=== PATIENT | male | born 1975 | race Hispanic/Latino ===

== ENCOUNTER 2022-09-07 21:18 | Inpatient (IN) | payer OTHER ==
[2022-09-07 22:37] LABS: #Eosinphils 0.5 thou/uL (0.0-0.7); #Monocytes 0.6 thou/uL (0.11-0.59); #Neutrophils 6.3 thou/uL (1.40-6.50); %Basophils 0.5 % (0.0-1.0); %Eosinophils 5.4 % (0.0-10.0); %Lymphocytes 16.1 % (21.0-51.0); %Monocytes 6.8 % (0.0-10.0); %Neutrophils 70.9 % (42.0-75.0); Hemoglobin 13.6 g/dL (14.0-18.0); Mean Corpuscular HGB CONC 34.4 g/dL (32.0-36.0); Mean Corpuscular Hemoglobin 28.9 pg (27.0-31.0); Mean Platelet Volume 11.8 fL (7.4-10.4); Platelet Count 202 10x3/uL (130-400); RBC Distribution Width 12.9 % (11.5-14.5); White Blood Cell (WBC) Count 8.8 10x3/uL (4.8-10.8)
[2022-09-07 23:02] LABS: ALT (SGPT) 13 U/L (8-55); AST (SGOT) 12 U/L (5-34); Albumin 3.9 g/dL (3.5-5.0); Alkaline Phosphatase 123 U/L (40-110); Anion Gap 13 mmol/L (10-20); BUN (Urea Nitrogen) 18 mg/dL (8.9-20.6); Bilirubin, Total 0.3 mg/dL (0.2-1.2); Calc. Creatinine Clearance 0 mL/min (70-130); Carbon Dioxide 23 mmol/L (22-29); Chloride 102 mmol/L (98-107); Estimated GFR 45; Globulin 3.4 g/dL (2.4-3.5); Glucose 329 mg/dL (70-105); Potassium 3.9 mmol/L (3.5-5.1); Protein, Total 7.3 g/dL (6.0-8.3); Sodium 134 mmol/L (136-145)
[2022-09-08] MEDS ORDERED: Cefepime 2 GM VIAL ONE (00:38)
[2022-09-08] MEDS ORDERED: Acetaminophen 325 MG TAB PO PRN (00:45)
[2022-09-08] MEDS ORDERED: VANCOMYCIN 2 GRAM/500 ML BAG 2 GM in Premix Bag 1 BAG IVPB SCH (01:00)
[2022-09-08] MEDS ORDERED: hydrALAZINE 20 MG/ML VIAL ONE (03:45)
[2022-09-08] MEDS ORDERED: hydrALAZINE 20 MG/ML VIAL SLOW IVP PRN (04:05)
[2022-09-08 04:15] LABS: Lactic Acid 1.5 mmol/L (0.5-2.2)
[2022-09-08] MEDS ORDERED: Thiamine HCl 200 MG/2 ML VIAL IM SCH (04:15)
[2022-09-08] MEDS: Lactated Ringer's 1,000 ML IV SCH ×2 (04:41→15:35)
[2022-09-08 05:01] VITALS: BMI 30.9
[2022-09-08] MEDS: Levothyroxine Sodium 112 MCG TAB PO SCH (05:50)
[2022-09-08 06:24] LABS: #Eosinphils 0.6 thou/uL (0.0-0.7); #Monocytes 0.7 thou/uL (0.11-0.59); #Neutrophils 6.5 thou/uL (1.40-6.50); %Basophils 0.4 % (0.0-1.0); %Eosinophils 5.8 % (0.0-10.0); %Lymphocytes 19.6 % (21.0-51.0); %Monocytes 7.5 % (0.0-10.0); %Neutrophils 66.4 % (42.0-75.0); Hemoglobin 12.6 g/dL (14.0-18.0); Mean Corpuscular HGB CONC 34.3 g/dL (32.0-36.0); Mean Corpuscular Hemoglobin 28.9 pg (27.0-31.0); Mean Corpuscular Volume 84.2 fl (78.0-98.0); Mean Platelet Volume 11.8 fL (7.4-10.4); Platelet Count 189 10x3/uL (130-400); Red Blood Cell (RBC) Count 4.36 mill/uL (4.70-6.10); White Blood Cell (WBC) Count 9.8 10x3/uL (4.8-10.8)
[2022-09-08 06:33] LABS: Amphetamine Not Detected (NotDetected); Barbiturates Screen Not Detected (NotDetected); Benzodiazepine Screen Not Detected (NotDetected); Cocaine Metabolite Screen Not Detected (NotDetected); Methadone Not Detected (NotDetected); Methamphetamine Not Detected (NotDetected); Opiate Screen Not Detected (NotDetected); Oxycodone Screen Not Detected (NotDetected); Phencyclidine (PCP) Not Detected (NotDetected); THC/Cannabinoid Screen Not Detected (NotDetected); Tricyclic Screen Not Detected (NotDetected)
[2022-09-08 06:46] LABS: Anion Gap 12 mmol/L (10-20); BUN (Urea Nitrogen) 17 mg/dL (8.9-20.6); Calc. Creatinine Clearance 99 mL/min (70-130); Calcium 8.5 mg/dL (7.8-10.44); Carbon Dioxide 22 mmol/L (22-29); Chloride 105 mmol/L (98-107); Estimated GFR 68; Glucose 206 mg/dL (70-105); Potassium 3.7 mmol/L (3.5-5.1); Sodium 135 mmol/L (136-145)
[2022-09-08 07:15] LABS: Hemoglobin A1c 9.7 % (4.0-6.0)
[2022-09-08] MEDS ORDERED: Dextrose 5% in Water 1,000 ML IV PRN (07:47)
[2022-09-08] MEDS ORDERED: HumaLOG 300 UNITS/3 ML VIAL SC PRN (07:47)
[2022-09-08] MEDS ORDERED: Dextrose 50% Abboject 50 ML SYRINGE SLOW IVP PRN (07:47)
[2022-09-08] MEDS ORDERED: Glucagon 1 MG/ML KIT IM PRN (07:47)
[2022-09-08] MEDS ORDERED: Allopurinol 100 MG TAB PO SCH (09:00)
[2022-09-08] MEDS ORDERED: Amlodipine 5 MG TAB PO SCH ×2 (09:00)
[2022-09-08] MEDS ORDERED: Cefepime 1 GM in Sodium Chloride 0.9% 100 ML IVPB SCH (09:00)
[2022-09-08] MEDS: Amlodipine 10 MG TAB PO SCH (09:02)
[2022-09-08] MEDS: Clopidogrel Bisulfate 75 MG TAB PO SCH (09:02)
[2022-09-08] MEDS: Multivit, Therapeutic 1 TAB PO SCH (09:02)
[2022-09-08 09:03] LABS: Lactic Acid 1.2 mmol/L (0.5-2.2)
[2022-09-08] MEDS: Folic Acid 1 MG TAB PO SCH (09:03)
[2022-09-08] MEDS: Atorvastatin Calcium 20 MG TAB PO SCH (09:03)
[2022-09-08] MEDS ORDERED: Allopurinol 300 MG TAB PO SCH (09:15)
[2022-09-08] MEDS ORDERED: Cefepime 2 GM in Sodium Chloride 0.9% 100 ML IVPB SCH (10:08)
[2022-09-08] MEDS ORDERED: Losartan 25 MG TAB PO SCH ×2 (10:30→13:00)
[2022-09-08] MEDS: HumaLOG 300 UNITS/3 ML VIAL SC PRN ×2 (13:36→18:47)
[2022-09-08] MEDS: Cefepime 2 GM in Sodium Chloride 0.9% 100 ML IVPB SCH (20:47)
[2022-09-08] MEDS ORDERED: Insulin Glargine 30 UNITS/0.3 ML VIAL SC SCH (21:00)
[2022-09-08] MEDS ORDERED: Lactated Ringer's 1,000 ML IV SCH (23:55)
[2022-09-09] MEDS: VANCOMYCIN 2 GRAM/500 ML BAG 2 GM in Premix Bag 1 BAG IVPB SCH (00:02)
[2022-09-09] MEDS: Levothyroxine Sodium 112 MCG TAB PO SCH (05:24)
[2022-09-09 05:44] LABS: Red Blood Cell (RBC) Count 4.32 mill/uL (4.70-6.10); White Blood Cell (WBC) Count 7.7 10x3/uL (4.8-10.8)
[2022-09-09 05:45] LABS: #Basophils 0.1 thou/uL (0.0-0.2); #Eosinphils 0.6 thou/uL (0.0-0.7); #Monocytes 0.6 thou/uL (0.11-0.59); #Neutrophils 5.1 thou/uL (1.40-6.50); %Basophils 0.6 % (0.0-1.0); %Eosinophils 7.1 % (0.0-10.0); %Lymphocytes 18.1 % (21.0-51.0); %Monocytes 7.6 % (0.0-10.0); %Neutrophils 66.3 % (42.0-75.0); Hemoglobin 12.4 g/dL (14.0-18.0); Mean Corpuscular HGB CONC 34.2 g/dL (32.0-36.0); Mean Corpuscular Hemoglobin 28.7 pg (27.0-31.0); Mean Platelet Volume 11.6 fL (7.4-10.4); Platelet Count 191 10x3/uL (130-400); RBC Distribution Width 12.8 % (11.5-14.5)
[2022-09-09 09:29] LABS: Anion Gap 11 mmol/L (10-20); BUN (Urea Nitrogen) 13 mg/dL (8.9-20.6); Calc. Creatinine Clearance 111 mL/min (70-130); Calcium 8.6 mg/dL (7.6-10.4); Carbon Dioxide 25 mmol/L (22-29); Cardiac Risk 3.6 (Less than 4.5); Chloride 107 mmol/L (98-107); Cholesterol 148 mg/dL (< 200 Desired); Estimated GFR 77; Glucose 171 mg/dL (70-105); HDL Cholesterol 41 mg/dL (>60 Neg Risk); LDL Cholesterol, Calculated 80 mg/dL; Potassium 3.9 mmol/L (3.5-5.1); Sodium 139 mmol/L (136-145); Triglycerides 133 mg/dL (Less than 150)
[2022-09-09] MEDS: Losartan 25 MG TAB PO SCH (09:30)
[2022-09-09] MEDS: Allopurinol 300 MG TAB PO SCH (09:30)
[2022-09-09] MEDS: Amlodipine 10 MG TAB PO SCH (09:31)
[2022-09-09] MEDS: Cefepime 2 GM in Sodium Chloride 0.9% 100 ML IVPB SCH ×2 (09:32→20:51)
[2022-09-09] MEDS ORDERED: Atorvastatin Calcium 20 MG TAB PO SCH (09:35)
[2022-09-09] MEDS ORDERED: Lidocaine 1% (PF) 30 ML VIAL ONE (09:50)
[2022-09-09] MEDS ORDERED: Heparin 10,000 UNITS/ 10 ML VIAL ONE (09:53)
[2022-09-09] MEDS: Folic Acid 1 MG TAB PO SCH (10:22)
[2022-09-09] MEDS: Aspirin 81 mg Enteric Coated Tablet PO SCH (10:22)
[2022-09-09] MEDS: Clopidogrel Bisulfate 75 MG TAB PO SCH (10:22)
[2022-09-09] MEDS: Atorvastatin Calcium 20 MG TAB PO SCH (10:23)
[2022-09-09] MEDS: Thiamine 100 MG TAB PO SCH (10:23)
[2022-09-09] MEDS: Multivit, Therapeutic 1 TAB PO SCH (10:23)
[2022-09-09] MEDS ORDERED: Iopamidol 370 76% 100 ML VIAL ONE (10:46)
[2022-09-09] MEDS ORDERED: fentaNYL 50 mcg/mL 1 mL Vial ONE (11:30)
[2022-09-09] MEDS ORDERED: Midazolam HCl 2 mg/2 ml Vial ONE (11:31)
[2022-09-09] MEDS ORDERED: Protamine Sulfate 50 MG/5 ML VIAL ONE (12:06)
[2022-09-09] MEDS: HumaLOG 300 UNITS/3 ML VIAL SC PRN (18:13)
[2022-09-09] MEDS ORDERED: Insulin Glargine 30 UNITS/0.3 ML VIAL SC SCH (21:00)
[2022-09-09] MEDS ORDERED: Atorvastatin Calcium 40 MG TAB PO SCH (21:00)
[2022-09-10 00:36] LABS: Vancomycin, Trough 10.7 ug/mL
[2022-09-10] MEDS: VANCOMYCIN 2 GRAM/500 ML BAG 2 GM in Premix Bag 1 BAG IVPB SCH (01:25)
[2022-09-10 05:21] LABS: #Eosinphils 0.6 thou/uL (0.0-0.7); #Monocytes 0.6 thou/uL (0.11-0.59); #Neutrophils 5.6 thou/uL (1.40-6.50); %Basophils 0.5 % (0.0-1.0); %Eosinophils 7.4 % (0.0-10.0); %Lymphocytes 18.9 % (21.0-51.0); %Monocytes 7.4 % (0.0-10.0); %Neutrophils 65.4 % (42.0-75.0); Hemoglobin 12.7 g/dL (14.0-18.0); Mean Corpuscular HGB CONC 33.7 g/dL (32.0-36.0); Mean Corpuscular Hemoglobin 28.6 pg (27.0-31.0); Mean Corpuscular Volume 84.9 fl (78.0-98.0); Mean Platelet Volume 11.3 fL (7.4-10.4); Platelet Count 222 10x3/uL (130-400); RBC Distribution Width 12.7 % (11.5-14.5); Red Blood Cell (RBC) Count 4.44 mill/uL (4.70-6.10); White Blood Cell (WBC) Count 8.5 10x3/uL (4.8-10.8)
[2022-09-10] MEDS: Levothyroxine Sodium 112 MCG TAB PO SCH (05:36)
[2022-09-10] MEDS: HumaLOG 300 UNITS/3 ML VIAL SC PRN ×2 (05:37→12:35)
[2022-09-10 05:38] LABS: Anion Gap 14 mmol/L (10-20); BUN (Urea Nitrogen) 13 mg/dL (8.9-20.6); Calc. Creatinine Clearance 105 mL/min (70-130); Calcium 8.9 mg/dL (7.8-10.44); Carbon Dioxide 20 mmol/L (22-29); Chloride 106 mmol/L (98-107); Estimated GFR 72; Glucose 251 mg/dL (70-105); Sodium 136 mmol/L (136-145)
[2022-09-10] MEDS: Clopidogrel Bisulfate 75 MG TAB PO SCH (09:21)
[2022-09-10] MEDS: Folic Acid 1 MG TAB PO SCH (09:21)
[2022-09-10] MEDS: Amlodipine 10 MG TAB PO SCH (09:21)
[2022-09-10] MEDS: Thiamine 100 MG TAB PO SCH (09:21)
[2022-09-10] MEDS: Aspirin 81 mg Enteric Coated Tablet PO SCH (09:21)
[2022-09-10] MEDS: Multivit, Therapeutic 1 TAB PO SCH (09:21)
[2022-09-10] MEDS: Cefepime 2 GM in Sodium Chloride 0.9% 100 ML IVPB SCH (09:21)
[2022-09-10] MEDS: Losartan 25 MG TAB PO SCH (09:21)
[2022-09-10] MEDS: Allopurinol 300 MG TAB PO SCH (09:21)
[2022-09-10 11:32] VITALS: BP 119/83; TEMP 99
[2022-09-10] MEDS ORDERED: Insulin Glargine 30 UNITS/0.3 ML VIAL SC SCH (21:00)
== END 2022-09-10 14:01 | disposition home or self-care (01) | DRG 253 ==
LOC: ERS 21:18 → OBSVTOIN 23:59 → SURG A 23:59
PROVIDERS: ADMIT Student in an Organized Health Care Education/Training Program; ATTEND Student in an Organized Health Care Education/Training Program
PROC: B41D1ZZ Fluoroscopy of Aorta and Bilateral Lower Extremity Arteries using Low Osmolar Contrast (ICD-10-PCS; principal; 2022-09-09)
PROC: 047L3Z1 Dilation of Left Femoral Artery using Drug-Coated Balloon, Percutaneous Approach (ICD-10-PCS; 2022-09-09)
DX: E11.51 Type 2 diabetes mellitus with diabetic peripheral angiopathy without gangrene (principal); E87.20 Acidosis, unspecified; N17.9 Acute kidney failure, unspecified; E11.621 Type 2 diabetes mellitus with foot ulcer; E11.40 Type 2 diabetes mellitus with diabetic neuropathy, unspecified; I10 Essential (primary) hypertension; E78.5 Hyperlipidemia, unspecified; F10.10 Alcohol abuse, uncomplicated; L97.529 Non-pressure chronic ulcer of other part of left foot with unspecified severity; E03.9 Hypothyroidism, unspecified; L03.032 Cellulitis of left toe; Z86.73 Personal history of transient ischemic attack (TIA), and cerebral infarction without residual deficits; Z79.899 Other long term (current) drug therapy; Z79.890 Hormone replacement therapy; Z79.84 Long term (current) use of oral hypoglycemic drugs; Z79.4 Long term (current) use of insulin; Z91.148 Patient's other noncompliance with medication regimen for other reason; Z71.51 Drug abuse counseling and surveillance of drug abuser
CPT/HCPCS: 36415; 36416; 37246; 75710; 80048; 80053; 80061; 80202; 80306; 83036; 83605; 84443; 85025; 85347; 85652; 86140; 87040; 93005; 93010; 93923; 96374; 97139; 99152; 99153; C1725; C1769; C1887; C1894; J0360; J0692; J1642; J1644; J1650; J1815; J2001; J2250; J2720; J3010; J3370; J3411; J3490; J7120; Q9967